=== PATIENT | female | born 2000 | race Caucasian/White ===

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

== ENCOUNTER 2021-01-03 17:32 | Emergency (ER) | payer OTHER ==
[~2021-01-03] VITALS: Ht 165.1 cm; Wt 94.3 kg
[2021-01-03 17:45] VITALS: BP 140/83
--- NOTE | 2021-01-03 17:50 | NUR ---
Patient ambulated to bed 9. RN evaluating the patient at bedside.
--- NOTE | 2021-01-03 18:00 | NUR ---
20/F presents to ED with c/o abdominal pain since this morning. Patient states she woke up with 10/10 sharp constant lower abdominal cramping. Patient states she took one Tylenol at home this morning with no relief. Patient is , gave on 10/12/20, patient is A0, states she took a test this week and it was positive. Patient denies nausea, vomiting, dysuria, hematuria.
--- NOTE | 2021-01-03 18:10 | NUR ---
ULTRASOUND AT BEDSIDE
[2021-01-03 18:15] LABS: HEMATOCRIT 35.6 % (36-48); HEMOGLOBIN 11.8 g/dL (12.0-16.0); MEAN CORPUSCULAR HEMOGLOBIN 26 pg (27-31); MEAN CORPUSCULAR HGB CONC 33 g/dL (33-37); MEAN CORPUSCULAR VOLUME 77.5 fL (80-94); PLATELET COUNT (AUTO) 324 K/uL (140-450); RED BLOOD CELL COUNT(AUTO) 4.59 MIL/uL (4.20-5.40); RED CELL DISTRIBUTION WIDTH 16.1 % (11.6-13.7); WHITE BLOOD COUNT (AUTO) 21.2 K/uL (4.5-11.0)
[2021-01-03 18:27] LABS: APPEARANCE,URINE CLEAR (CLEAR); BILIRUBIN,URINE 1+ (NEGATIVE); BLOOD, URINE 1+ (NEGATIVE); COLOR,URINE YELLOW (YELLOW); LEUKOCYTE ESTERASE ,URINE NEGATIVE (NEGATIVE); NITRITE, URINE NEGATIVE (NEGATIVE); UGLUCOSE NEGATIVE (NEGATIVE)
[2021-01-03 18:41] LABS: EOSINOPHILS % (MANUAL) 1 % (0-4); LYMPHOCYTES % (MANUAL) 8 % (20-46); METAMYELOCYTES % 1 % (0-0); MONOCYTES % (MANUAL) 7 % (5-12); PROMYELOCYTES % 1 % (0-0)
--- NOTE | 2021-01-03 18:42 | NUR ---
Dr. Donahue is evaluating the patient at bedside.
[2021-01-03 18:47] LABS: RBC,URINE 0-5 /HPF (0-5); WBC,URINE 0-5 /HPF (0-5)
--- NOTE | 2021-01-03 19:12 | NUR ---
Pt report given to Xin. Transfer of care at this time.
--- NOTE | 2021-01-03 19:14 | NUR ---
RECEIVED REPORT FROM ELMIRA PETERSON FOR CONTINUITY OF CARE
[2021-01-03] MEDS ORDERED: ONDA8TAB87 PO (19:20)
[2021-01-03 19:34] VITALS: BP 107/54
--- NOTE | 2021-01-03 19:35 | NUR ---
Patient discharged with v/s stable. Written and verbal after care instructions given and explained. Patient alert, oriented and verbalized understanding of instructions. Ambulatory with steady gait. All questions addressed prior to discharge. ID band removed. Patient advised to follow up with PMD. Rx of ONDANSETRON given. Patient educated on indication of medication including possible reaction and side effects. Opportunity to ask questions provided and answered.
== END 2021-01-03 19:35 | disposition home or self-care (01) ==
LOC: MED 17:32
DX: O20.0 Threatened abortion (principal)
CPT/HCPCS: 36415; 76817; 81001; 81025; 84702; 85025; 99284

== ENCOUNTER 2022-02-14 17:48 | Emergency (ER) | payer OTHER ==
[~2022-02-14] VITALS: Ht 165.1 cm; Wt 95.3 kg
[~2022-02-14 17:48] MED LIST: ONDA8TAB87 PO
[2022-02-14 17:52] VITALS: BP 140/95
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
[2022-02-14] MEDS ORDERED: BACITRACIN OINT 500 UNITS/GM PKT TP ONE (18:20)
[2022-02-14] MEDS ORDERED: ACETAMINOPHEN EXTRA STRENGTH 500 MG TAB PO ONE (18:20)
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
[2022-02-14] MEDS ORDERED: LIDOCAINE MPF 1% 5 ML ONE ×2 (18:45)
[2022-02-14] MEDS ORDERED: LIDOCAINE MPF 1% 10 MG/ML VIAL INJ ONE ×2 (18:45)
[2022-02-14] MEDS ORDERED: ACET-10509 PO (19:27)
[2022-02-14] MEDS ORDERED: BACI28.43 TP (19:27)
[2022-02-14 19:50] VITALS: BP 127/89
--- NOTE | 2022-02-14 19:50 | NUR ---
Patient discharged with v/s stable. Written and verbal after care instructions given and explained. Patient alert, oriented and verbalized understanding of instructions. Ambulatory with steady gait. All questions addressed prior to discharge. ID band removed. Patient advised to follow up with PMD. Rx of TYLENOL,BACITRACIN given. Patient educated on indication of medication including possible reaction and side effects. Opportunity to ask questions provided and answered.
== END 2022-02-14 19:50 | disposition home or self-care (01) ==
LOC: MED 17:48
DX: S01.01XA Laceration without foreign body of scalp, initial encounter (principal); W22.8XXA Striking against or struck by other objects, initial encounter; Y93.89 Activity, other specified; Y92.89 Other specified places as the place of occurrence of the external cause; Y99.8 Other external cause status
CPT/HCPCS: 12002; 90471; 90715; 99283; J2001

== ENCOUNTER 2022-02-27 18:38 | Emergency (ER) | payer OTHER ==
[~2022-02-27] VITALS: Ht 165.1 cm; Wt 95.7 kg
[~2022-02-27 18:38] MED LIST changes: +ACET-10509 PO; +BACI28.43 TP
[2022-02-27 18:44] VITALS: BP 119/71
--- NOTE | 2022-02-27 18:59 | NUR ---
PT AMBULATE TO ROOM 8
--- NOTE | 2022-02-27 19:04 | NUR ---
PA AT BEDSIDE
[2022-02-27 19:33] VITALS: BP 134/78
== END 2022-02-27 19:33 | disposition home or self-care (01) ==
LOC: MED 18:38
DX: S01.01XD Laceration without foreign body of scalp, subsequent encounter (principal); X58.XXXD Exposure to other specified factors, subsequent encounter
CPT/HCPCS: 99281